=== PATIENT | male | born 1990 | race Caucasian/White ===

== ENCOUNTER 2019-10-09 23:41 | Emergency (ER) | payer BC, MEDICAID ==
[~2019-10-09] VITALS: Ht 170.2 cm; Wt 100.0 kg
[2019-10-10] MEDS ORDERED: LIDOCAINE 1%-EPI 1:100K, 20ML ONE (00:29)
[2019-10-10] MEDS ORDERED: LIDOCAINE 1%-EPI 1:100K, 20ML SQ ONE (00:30)
--- NOTE | 2019-10-10 01:17 | NUR ---
PT TO CT
[2019-10-10 01:28] VITALS: BP 110/62
== END 2019-10-10 02:40 | disposition home or self-care (01) ==
LOC: ED 10-10 02:00
DX: S01.81XA Laceration without foreign body of other part of head, initial encounter (principal); F10.120 Alcohol abuse with intoxication, uncomplicated; Y90.9 Presence of alcohol in blood, level not specified; W18.39XA Other fall on same level, initial encounter; Y93.89 Activity, other specified; Y92.098 Other place in other non-institutional residence as the place of occurrence of the external cause; Y99.8 Other external cause status
CPT/HCPCS: 12013; 70450; 99284